=== PATIENT | male | born 1985 | race Caucasian/White ===

== ENCOUNTER 2023-05-18 18:08 | Outpatient (REF) | payer OTHER, SELFPAY ==
[2023-05-18 20:56] LABS: HCT 49.1 % (40.0-50.0); HGB 16.7 g/dL (13.5-17.5); MCH 30.6 pg (27.0-33.0); MCV 90 fL (80-95); Platelet Count 334 10^3/uL (130-400); RBC 5.45 10^6/uL (4.36-5.78); RDW 12.1 % (11.8-14.1); WBC 10.21 10^3/uL (4.4-10.8)
[2023-05-18 21:34] LABS: Calculated LDL 186 mg/dL (<100); Cholesterol 302 mg/dL (<200); Ferritin 96 ng/mL (26-388); Glucose 90 mg/dL (74-106); HDL Cholesterol 64 mg/dL (40-60); Triglyceride 260 mg/dL (<150)
== END 2023-05-18 18:09 | disposition home or self-care (01) ==
LOC: NCHCN 18:08
PROVIDERS: Visit Provider Nurse Practitioner Family
DX: G47.20 Circadian rhythm sleep disorder, unspecified type (principal); Z13.1 Encounter for screening for diabetes mellitus; Z13.220 Encounter for screening for lipoid disorders
CPT/HCPCS: 80061; 82947; 85027; 82728

== ENCOUNTER 2023-05-30 13:38 | Outpatient (REF) | payer OTHER, SELFPAY ==
[2023-05-30 15:57] LABS: Anion Gap 9.8 mmol/L (3-11); BUN 15 mg/dL (7-18); CO2 28.2 mmol/L (21.0-32.0); CREATININE 1.5 mg/dL (0.70-1.30); Calcium 9.5 mg/dL (8.5-10.1); Chloride 100 mmol/L (98-107); Estimated GFR 60.36 (mL/min/1.73m2); Glucose 114 mg/dL (74-106); Potassium 4.5 mmol/L (3.5-5.1); Sodium 138 mmol/L (136-145)
== END 2023-05-30 13:39 | disposition home or self-care (01) ==
LOC: NCHCN 13:38
PROVIDERS: PCP Registered Nurse; Visit Provider Registered Nurse
DX: Z01.818 Encounter for other preprocedural examination (principal)
CPT/HCPCS: 80048